=== PATIENT | female | born 1980 ===

== ENCOUNTER 2017-01-20 06:18 | Inpatient (IN) | payer MEDICAID ==
[2017-01-09 10:05] VITALS: BMI 30.7
[2017-01-20] MEDS ORDERED: Phenylephrine 10 mg/ml Inj ONE (06:58)
[2017-01-20] MEDS ORDERED: Vasopressin 20 Units/ml Inj ONE (06:58)
[2017-01-20] MEDS ORDERED: Propofol 10 mg/ml Inj (20 ML) ONE (07:01)
[2017-01-20] MEDS ORDERED: Midazolam 2 MG/2 ML VIAL ONE (07:02)
[2017-01-20] MEDS ORDERED: Rocuronium 10 mg/ml (5 ml) ONE (07:02)
[2017-01-20] MEDS ORDERED: ePHEDrine 50 mg/ml Inj ONE (07:02)
[2017-01-20] MEDS ORDERED: Succinylcholine 200 mg/10 ml Inj IV ONE (07:02)
[2017-01-20] MEDS ORDERED: Bupivacaine 0.5% Inj(30mL) ONE (07:22)
[2017-01-20] MEDS ORDERED: Lactated Ringer's 1,000 ML IV ONE ×2 (07:55→08:00)
[2017-01-20] MEDS ORDERED: Dexamethasone 4 mg/1 ml ONE (08:23)
[2017-01-20] MEDS ORDERED: Neostigmine Methylsulfate 3mg/3ml Syringe IV ONE (08:23)
[2017-01-20] MEDS ORDERED: Oxycodone/Acetaminophen 5/325 mg Tab PO PRN (09:56)
[2017-01-20] MEDS ORDERED: Naloxone 0.4 mg/ml Inj (Adult) IVP PRN (10:17)
[2017-01-20] MEDS ORDERED: DiphenhydrAMINE 50 mg/ml Inj IVP PRN (10:17)
[2017-01-20] MEDS: HYDROmorphone 0.5 mg/0.5 ml ISec IVP PRN ×4 (10:25→11:05)
[2017-01-20] MEDS: cefOXitin Sodium 1 GM in Sodium Chloride 0.9% 100 ML IVPB SCH (17:48)
[2017-01-21] MEDS: cefOXitin Sodium 1 GM in Sodium Chloride 0.9% 100 ML IVPB SCH ×2 (01:51→08:51)
[2017-01-21] MEDS: Lactated Ringer's 1,000 ML IV SCH ×2 (01:51→11:46)
[2017-01-21 05:01] VITALS: RESP 20; O2SAT 99
[2017-01-21 07:34] VITALS: BP 108/65; PULSE 70; TEMP 98.1
[2017-01-21 08:15] LABS: HEMATOCRIT 22.8 % (34.0-47.0); MEAN CORPUSCULAR HEMOGLOBIN 19.9 pg (27.0-31.0); MEAN CORPUSCULAR HGB CONC 30.2 g/dL (33.0-37.0); WHITE BLOOD COUNT 16.4 K/uL (4.8-10.8)
--- NOTE | 2017-01-21 09:11 | CP.PCM.PN ---
<Bubba Lopez - Last Filed: 01/21/17 09:14> Subjective - Date & Time of Evaluation Date of Evaluation: 01/21/17 Time of Evaluation: 08:35 - Subjective Subjective: This is a 36 F who had a robotic hysterectomy yesterday. Pt reports feeling well today, lower abdominal pain is present and exacerbated with movement but tolerable with current analgesics. Pt tolerating PO. No passing of gas per rectum or bowel movement yet. Overall recovering fine. Objective - Vital Signs/Intake and Output Vital Signs (last 24 hours): Temp Pulse Resp BP Pulse Ox 98.1 F 70 20 108/65 99 01/21/17 07:34 01/21/17 07:34 01/21/17 07:34 01/21/17 07:34 01/21/17 07:34 - Medications Medications: Current Medications Diphenhydramine HCl (Benadryl) 25 mg IVP Q6 PRN PRN Reason: Itching / Pruritus Hydromorphone HCl (Dilaudid 0.2 Mg/Ml Synoptic Meteorologist) 0 mg IV PRN PRN; Protocol PRN Reason: Pain, severe (8-10) Last Admin: 01/20/17 11:11 Dose: 6 mg Lactated Ringer's (Lactated Ringer's) 1,000 mls @ 125 mls/hr IV .Q8H AR Last Admin: 01/21/17 01:51 Dose: 125 mls/hr Cefoxitin Sodium 1 gm/ Sodium (Chloride) 100 mls @ 100 mls/hr IVPB Q8 AR Stop: 01/21/17 09:59 Last Admin: 01/21/17 08:51 Dose: 100 mls/hr Ketorolac Tromethamine (Toradol) 30 mg IVP Q6 PRN PRN Reason: Pain, Mild (1-3) Naloxone HCl (Narcan) 0.1 mg IVP Q2M PRN PRN Reason: Shortness of Breath Ondansetron HCl (Zofran Inj) 4 mg IVP ONCE PRN PRN Reason: Nausea/Vomiting Oxycodone/Acetaminophen (Percocet 5/325 Mg Tab) 1 tab PO Q4 PRN PRN Reason: Pain, moderate (4-7) Stop: 01/23/17 09:57 - Labs Labs: 01/21/17 06:00 - Constitutional Appears: Well, No Acute Distress - Head Exam Head Exam: NORMAL INSPECTION - ENT Exam ENT Exam: Mucous Membranes Dry - Neck Exam Neck Exam: Full ROM - Respiratory Exam Respiratory Exam: Clear to Ausculation Bilateral - Cardiovascular Exam Cardiovascular Exam: +S1, +S2 - GI/Abdominal Exam GI & Abdominal Exam: Soft (Incisions clean, dry and intact.), Tenderness, Normal Bowel Sounds. absent: Bruit, Guarding, Rigid Assessment and Plan - Assessment and Plan (Free Text) Assessment: 1. s/p total hysterectomy. Plan: Pt will be discharge home today. Pt encouraged to ambulate and hydrate well. No heavy lifting. Pt instructed to apply warm compresses and clean incisions with warm water. Percocet was prescribed as per pain control. Please follow Dr. Brian in 1 week. <Shane Hampton - Last Filed: 01/25/17 07:33> Objective - Vital Signs/Intake and Output Vital Signs (last 24 hours): Temp Pulse Resp BP Pulse Ox 98.1 F 70 20 108/65 99 01/21/17 07:34 01/21/17 07:34 01/21/17 07:34 01/21/17 07:34 01/21/17 07:34 - Labs Labs: 01/21/17 06:00 Attending/Attestation - Attestation I have personally seen and examined this patient.: Yes I have fully participated in the care of the patient.: Yes I have reviewed all pertinent clinical information, including history, physical exam and plan: Yes
--- NOTE | 2017-02-11 05:50 | OP ---
PREOPERATIVE DIAGNOSES: Symptomatic fibroid uterus, history of blood transfusion, history of anemia. POSTOPERATIVE DIAGNOSES: Symptomatic fibroid uterus, history of blood transfusion, history of anemia. OPERATION PERFORMED: Robotic-assisted hysterectomy. SURGEON: Belen Brian MD ANESTHESIA: General. ANESTHESIA ADMINISTERED BY: Dr. Jama ESTIMATED BLOOD LOSS: 75 mL. IV FLUID INTAKE: Patient received approximately 1600 mL of D5 LR intraoperatively. URINE OUTPUT: Approximately 600 mL of clear urine. OPERATIVE FINDINGS: A 10-week size uterus. Normal tubes and ovaries were identified. Cystoscopy revealed a normal dome of the bladder and there was bilateral efflux of urine from the ostia. AUTOMOTIVE HEAVY MECHANIC: Yoselin Loaiza . She was helpful in manipulating the specimen, helping with obtaining hemostasis and a closure of the patient. The procedure has not been possible without her assistance. DESCRIPTION OF PROCEDURE: After informed consent was obtained, the patient was taken to the operating room, where she was given general anesthesia. She was then prepped and draped in a normal sterile fashion in a modified lithotomy position. Attention was then turned to the vagina, where a weighted speculum was inserted into the vagina, cervix was visualized, grasped with a single-toothed tenaculum. Cervix was then gently dilated and a VCare uterine manipulator was inserted in the uterine cavity as a means to manipulate the uterus. Attention was then turned to the urethra. Knott catheter was inserted to monitor the patient's urinary output. Attention was then turned to the abdomen, where approximately at the level of the umbilical fold, Marcaine was infused and an 8 mm incision was made with the scalpel. The abdomen was then tented upward and the Veress needle was inserted into the abdominal cavity. The abdomen was insufflated to 15 mL/mHg. The Veress needle was removed and 8 mm trocar was introduced into the abdominal cavity and placement was confirmed with the laparoscope. Attention was then turned to approximately 20 cm right and lateral of the umbilicus. Marcaine was infused and 8 mm incision was made and an 8 mm robotic port was introduced under direct visualization. Attention was then turned to approximately 10 cm right and lateral of the umbilicus, which in similar fashion, Marcaine was infused and 8 mm incision was made, and an 8 mm robotic port was introduced under direct visualization. Attention was then turned to the left side, approximately 20 cm left and lateral of the umbilicus, Marcaine was infused and an 8 mm incision was made and a 8 mm robotic port was introduced into the abdominal cavity. Approximately 10 cm left and lateral of 5 mm incision was made and a 5 mm port was introduced to the abdominal cavity for the assisted port. The patient was then placed in a steep Trendelenburg. The robot was brought along the patient site and docked without complication. The instruments used for the surgery were PK dissector, scissor, ProGrasp, and Sebas Suture Cut. I then proceeded to break scrub and approached the surgical console. Attention was then turned to the right round ligament. It was serially coagulated and transected with the scissors. The vesicouterine peritoneum was then undermined with a PK dissector and the tissue was cut with a scissor down to the level of VCare cup anteriorly. Attention was then turned to the utero-ovarian ligament, it was serially coagulated and transected with a scissor. The broad ligament was then skeletonized downward down to the level of VCare cup posteriorly. The uterine arteries were then skeletonized and then serially coagulated down to the level of Vcare cup. The left ureter was clearly visualized inferiorly. Attention was then turned to the right side of the abdomen, the round ligament was serially coagulated, then transected with the scissors. The vesicouterine peritoneum was undermined with a PK dissector down to the level of Vcare cup and cut with scissors. The VCare cup was then identified anteriorly. The utero-ovarian ligament was then serially coagulated and transected with the scissors. The posterior leaf of the broad ligament was then cut with the scissors down to the level of VCare cup posteriorly. The uterine artery was then skeletonized and serially coagulated. The VCare cup was then identified anteriorly, posteriorly, and laterally. The cervix and uterus were then amputated with a hot neto and the uterus and tubes were delivered vaginally. The vaginal cuff was then closed with 2-0, 1-0 barbed suture. The abdomen was then copiously irrigated. The irrigant was then removed with a suction device. Hemostasis was noted. All instruments were then removed from the abdomen and we undocked the patient from the robot. Attention was then turned to the bladder, where cystoscopy was performed. Due to variations of normal anatomy, the right ureter was not clearly visualized. Cystoscopy was performed. The dome of the bladder was noted to be intact and there was bilateral efflux of urine. All instruments were then removed from the bladder. The skin incisions were closed with Dermabond. All sponge, lap, needle, and instrument counts were correct x2, and the patient was taken to the recovery room in awake and stable condition. Belen Brian MD MTDD
== END 2017-01-21 16:11 | disposition home or self-care (01) | DRG 359 ==
LOC: H.OPSURG 06:18 → H.MEDSURG1 09:56
PROVIDERS: ADMIT Obstetrics & Gynecology Gynecology; ATTEND Obstetrics & Gynecology Gynecology
PROC: 8E0W4CZ Robotic Assisted Procedure of Trunk Region, Percutaneous Endoscopic Approach (ICD-10-PCS; 2017-01-20)
PROC: 0UT94ZZ Resection of Uterus, Percutaneous Endoscopic Approach (ICD-10-PCS; principal; 2017-01-20 07:45)
PROC: 0UTC4ZZ Resection of Cervix, Percutaneous Endoscopic Approach (ICD-10-PCS; 2017-01-20 07:45)
DX: D25.9 Leiomyoma of uterus, unspecified (principal); Z91.012 Allergy to eggs

== ENCOUNTER 2017-01-23 01:05 | Emergency (ER) | payer MEDICAID ==
[2017-01-23 01:06] VITALS: BMI 30.7
[2017-01-23 01:20] VITALS: BP 131/90; PULSE 87; RESP 18; TEMP 99.4; O2SAT 99
[2017-01-23] MEDS ORDERED: Sodium Chloride 0.9% 1,000 ML IV STA (01:21)
[2017-01-23] MEDS ORDERED: Magnesium Citrate Oral SOL (300 ml) PO ONE (01:21)
--- NOTE | 2017-01-23 01:25 | ED PDOC ---
HPI: Abdomen Time Seen by Provider: 01/23/17 01:10 Chief Complaint (Nursing): GI Problem Chief Complaint (Provider): Constipation History Per: Patient Additional Complaint(s): Pt is a 36 yo female, recently underwent Hysterectomy this past Monday, presents with abdominal cramping and constipation since (4 days ago). Pt has been taking Percocet for her pain and was also given RX for Senakot, which she has been taking as well. Past Medical History Vital Signs: Last Vital Signs Temp 99.4 F 01/23/17 01:15 Pulse 87 01/23/17 01:15 Resp 18 01/23/17 01:15 BP 131/90 01/23/17 01:15 Pulse Ox 99 01/23/17 01:26 - Medical History PMH: Anemia Denies: Chronic Kidney Disease - Surgical History Surgical History: - Family History Family History: States: Unknown Family Hx - Home Medications Home Medications: Ambulatory Orders Medication Instructions Recorded Ferrous Sulfate [Feosol] 325 mg PO BID #0 tab 10/01/16 Multivitamin [Multiple Vitamins] 1 tab PO DAILY 01/20/17 Sennosides/Docusate Sodium 1 each PO HS #30 tablet 01/21/17 [Senokot-S Tablet] oxyCODONE/Acetaminophen [Percocet 1 tab PO Q4 PRN #24 tab 01/21/17 5/325 mg Tab] - Allergies Allergies/Adverse Reactions: Allergies Allergy/AdvReac Type Severity Reaction Status Date / Time EGG Allergy Intermediate PAIN Verified 09/30/16 18:25 Physical Exam - Reviewed Nursing Documentation Reviewed: Yes Vital Signs Reviewed: Yes - Physical Exam Appears: Positive for: Well, Non-toxic, No Acute Distress Head Exam: Positive for: ATRAUMATIC, NORMAL INSPECTION, NORMOCEPHALIC Skin: Positive for: Normal Color, Warm, DRY Eye Exam: Positive for: EOMI, Normal appearance, PERRL ENT: Positive for: Normal ENT Inspection Neck: Positive for: Normal, Painless ROM Cardiovascular/Chest: Positive for: Regular Rate, Rhythm Respiratory: Positive for: CNT, Normal Breath Sounds Gastrointestinal/Abdominal: Positive for: Normal Exam, Bowel Sounds, Soft. Negative for: Tenderness, Distended Back: Positive for: Normal Inspection Extremity: Positive for: Normal ROM Neurologic/Psych: Positive for: Alert, Oriented - Laboratory Results Result Diagrams: 01/23/17 01:32 01/23/17 01:32 - ECG O2 Sat by Pulse Oximetry: 99 Medical Decision Making Medical Decision Making: CBC, COMP and UA resulted WNl Abdomen XR: (+) non obstructive gas pattern, as read by AP-C Pt medicated with Mag citrate and fleet Enema. Pt had 3 large BMs while in ED and reports feeling greatly improved abdomen soft, non tender and non distended Disposition - Clinical Impression Clinical Impression: Constipation - Patient ED Disposition Is Patient to be Admitted: No - Disposition Referrals: Betty Hebert MD [Primary Care Provider] - Disposition: Routine/Home Disposition Time: 02:54 Condition: STABLE Instructions: Constipation (ED) - POA Present On Arrival: None
[2017-01-23 01:44] LABS: BASO # 0.1 K/uL (0.0-0.2); BASO % 1.4 % (0.0-2.0); EOS # 0.3 K/uL (0.0-0.7); EOS % 3.2 % (0.0-4.0); HEMOGLOBIN 7.6 g/dL (12.0-16.0); LYMPH # 1.8 K/uL (1.0-4.3); MEAN CELL VOLUME 65.2 fl (81.0-99.0); MEAN CORPUSCULAR HEMOGLOBIN 19.6 pg (27.0-31.0); MEAN PLATELET VOLUME 7.7 fl (7.2-11.7); MONO # 0.6 K/uL (0.0-0.8); MONO % 7.5 % (0.0-10.0); NEUT # 5.5 K/uL (1.8-7.0); NEUT % 65.9 % (50.0-75.0); RBC 3.86 Mil/uL (3.80-5.20); RED CELL DISTRIBUTION WIDTH 18.8 % (11.5-14.5); WHITE BLOOD COUNT 8.4 K/uL (4.8-10.8)
[2017-01-23 01:57] LABS: ALB/GLOB RATIO 1.2 (1.0-2.1); ALBUMIN 4.3 g/dL (3.5-5.0); ALT/SGPT 35 U/L (9-52); AST/SGOT 38 U/L (14-36); BLOOD UREA NITROGEN 7 mg/dl (7-17); CALCIUM 9.4 mg/dL (8.4-10.2); GFR AFRICAN-AMERICAN > 60; GFR NON-AFRICAN AMERICAN > 60
[2017-01-23 02:00] LABS: SQUAMOUS EPITHIAL 1 /hpf (0-5); URINE BILIRUBIN NEGATIVE (NEGATIVE); URINE BLOOD NEGATIVE (NEGATIVE); URINE CLARITY CLEAR (Clear); URINE COLOR STRAW (YELLOW); URINE GLUCOSE (UA) NEG (Normal); URINE LEUKOCYTE ESTERASE NEG Leu/uL (Negative); URINE NITRATE NEGATIVE (NEGATIVE); URINE PROTEIN NEGATIVE (NEGATIVE); URINE UROBILINOGEN 0.2-1.0 mg/dL (0.2-1.0)
[2017-01-23] MEDS ORDERED: Simethicone 80 mg Chewtab PO PRN (03:01)
--- NOTE | 2017-01-23 11:22 | RAD ---
HISTORY: constipation COMPARISON: No prior. FINDINGS: BOWEL: Moderate amount stool seen throughout the colon consistent with constipation. No evidence of acute mechanical bowel obstruction. BONES: Normal. OTHER FINDINGS: No definitive abnormal calcifications IMPRESSION: Findings consistent with constipation. No evidence acute mechanical bowel obstruction
== END 2017-01-23 04:07 | disposition home or self-care (01) ==
LOC: H.ER 01:05
DX: K59.00 Constipation, unspecified (principal)

== ENCOUNTER 2017-03-16 12:37 | Emergency (ER) | payer MEDICAID ==
[2017-03-16 12:37] VITALS: BMI 30.7
[2017-03-16 12:46] VITALS: BP 109/69; PULSE 89; RESP 18; TEMP 97; O2SAT 98
--- NOTE | 2017-03-16 13:06 | ED PDOC ---
Lower Extremity Pain/Injury Time Seen by Provider: 03/16/17 12:57 Chief Complaint (Nursing): Lower Extremity Problem/Injury Chief Complaint (Provider): ankle pain History Per: Patient Current Symptoms Are (Timing): Still Present Additional Complaint(s): Rosario Singh is a 36 year old female who presents to the emergency department with a complaint of right ankle pain associated with swelling status post twisting ankle when she fell yesterday, 03/15/17. She denied taking pain medication for relief and has no associated numbness or tingling to affected area. Patient stated she is able to ambulate but has pain with weigh bearing. Patient denies head injury or loss of consciousness as a result of fall yesterday, denies dizziness or syncope prior to fall. PMD: Betty Hebert MD Past Medical History Reviewed: Historical Data, Nursing Documentation, Vital Signs Vital Signs: Last Vital Signs Temp 97 F L 03/16/17 12:43 Pulse 89 03/16/17 12:43 Resp 18 03/16/17 12:43 BP 109/69 03/16/17 12:43 Pulse Ox 98 03/16/17 12:43 - Medical History PMH: Anemia - Surgical History Surgical History: Other surgeries: hysterectomy - Family History Family History: States: No Known Family Hx - Living Arrangements Living Arrangements: With Family - Social History Current smoker - smoking cessation education provided: No Alcohol: None Drugs: Denies - Home Medications Home Medications: Ambulatory Orders Medication Instructions Recorded Ferrous Sulfate [Feosol] 325 mg PO BID #0 tab 10/01/16 Multivitamin [Multiple Vitamins] 1 tab PO DAILY 01/20/17 Sennosides/Docusate Sodium 1 each PO HS #30 tablet 01/21/17 [Senokot-S Tablet] oxyCODONE/Acetaminophen [Percocet 1 tab PO Q4 PRN #24 tab 01/21/17 5/325 mg Tab] Simethicone [Mylicon Chew Tab] 80 mg PO Q4 #20 ctb 01/23/17 - Allergies Allergies/Adverse Reactions: Allergies Allergy/AdvReac Type Severity Reaction Status Date / Time EGG Allergy Intermediate PAIN Verified 09/30/16 18:25 Wells Criteria for PE - Wells Criteria for Pulmonary Embolism Clinical Signs and Symptoms of DVT: No P.E is #1 Diagnosis, or Equally Likely: No Heart Rate >100: No Immobilization at least 3 days;Surgery previous 4 weeks: No Previous, objectively diagnosed PE or DVT: No Hemoptysis: No Malignancy w/treatment within 6 months, or palliative: No Total Score: 0 Review of Systems ROS Statement: Except As Marked, All Systems Reviewed And Found Negative Musculoskeletal: Positive for: Foot Pain (right ankle injury) Physical Exam - Reviewed Nursing Documentation Reviewed: Yes Vital Signs Reviewed: Yes - Physical Exam Appears: Positive for: Well, Non-toxic, No Acute Distress Head Exam: Positive for: ATRAUMATIC, NORMAL INSPECTION, NORMOCEPHALIC Skin: Positive for: Normal Color Respiratory: Positive for: Normal Breath Sounds. Negative for: Respiratory Distress Extremity: Positive for: Tenderness (moderate to right lateral malleolus), Swelling (moderate to right lateral malleolus), Other (decreased ROM of right ankle). Negative for: Normal ROM Neurologic/Psych: Positive for: Alert, Oriented - ECG O2 Sat by Pulse Oximetry: 98 (RA) Pulse Ox Interpretation: Normal - Other Rad Right ankle x-ray X-Ray: Interpreted by Me, Viewed By Me X-Ray Interpretation: no fx, no dis Medical Decision Making Medical Decision Making: Initial Impression: 36 year old with right ankle pain Initial Plan: * Motrin 600mg PO * Xray foot (right) Time: 120 --Xray: no fractures or deformity noted. --Upon provider reevaluation, patient is medically stable and requires no further treatment in the ED at this time. She was given crutches. LEIGHTON wrap and air cast applied to right foot. Patient will be discharged home. Counseling was provided and all questions were answered regarding diagnosis and need for follow up with podiatry. There is agreement to discharge plan. Return if symptoms persist or worsen. Clinical Impression: Right ankle sprain Scribe Attestation: Documented by Tyra Sandoval, acting as a scribe for Sarah Squires PA-C. Provider Scribe Attestation: All medical record entries made by the Scribe were at my direction and personally dictated by me. I have reviewed the chart and agree that the record accurately reflects my personal performance of the history, physical exam, medical decision making, and the department course for this patient. I have also personally directed, reviewed, and agree with the discharge instructions and disposition. Procedures - Splinting Location: right ankle Pre-Made Type: aircast (leighton wrap and aircast) Pre-Proc Neuro Vasc Exam: normal Post-Proc Neuro Vasc Exam: normal Disposition - Clinical Impression Clinical Impression: Ankle sprain - Patient ED Disposition Is Patient to be Admitted: No Counseled Patient/Family Regarding: Studies Performed, Diagnosis, Need For Followup - Disposition Referrals: Podiatry Clinic [Outside] Disposition: Routine/Home Disposition Time: 13:36 Condition: STABLE Additional Instructions: Ice, rest and elevate affected area. Take [id number] Tylenol or Motrin for pain as needed. Follow-up with podiatry clinic in 2-3 days. Instructions: Ankle Stirrup Splint (ED), Ankle Sprain (ED), Crutch Instructions (ED) Forms: [employer] (Tuvaluan) Print Language: WELSH
--- NOTE | 2017-03-16 13:26 | RAD ---
PROCEDURE: Right ankle dated 03/16/2017. HISTORY: trauma COMPARISON: None FINDINGS: BONES: No evidence of acute displaced fracture nor dislocation however note made of 1 or 2 tiny corticated bony densities within the soft tissues subjacent to the inferior tip of the medial malleolus lateral malleolus overlying the inferolateral margin of the ankle mortise. Findings may represent some old posttraumatic mineralization or sequela of old avulsion injury. Clinical correlation with history recommended. Mild moderate lateral soft tissue swelling JOINTS: Normal. No osteoarthritis. Ankle mortise maintained. Talar dome intact SOFT TISSUES: As above. OTHER FINDINGS: None. IMPRESSION: No evidence of acute displaced fracture nor dislocation however note made of 1 or 2 tiny corticated bony densities within the soft tissues subjacent to the inferior tip of the medial malleolus lateral malleolus overlying the inferolateral margin of the ankle mortise. Findings may represent some old posttraumatic mineralization or sequela of old avulsion injury. Clinical correlation with history recommended. Mild moderate lateral soft tissue swelling
== END 2017-03-16 13:41 | disposition home or self-care (01) ==
LOC: H.ER 12:37
DX: S93.401A Sprain of unspecified ligament of right ankle, initial encounter (principal); W19.XXXA Unspecified fall, initial encounter; Y92.89 Other specified places as the place of occurrence of the external cause

== ENCOUNTER 2017-12-20 23:53 | Emergency (ER) | payer MEDICAID ==
[2017-12-20 23:54] VITALS: BMI 30.7
[2017-12-20 23:58] VITALS: BP 133/87; RESP 16; TEMP 98.8; O2SAT 98
[2017-12-21 00:40] LABS: BASO % 0.2 % (0.0-2.0); EOS # 0.2 K/uL (0.0-0.7); EOS % 3.7 % (0.0-4.0); HEMOGLOBIN 11.5 g/dL (12.0-16.0); LYMPH % 35.7 % (20.0-40.0); MEAN CELL VOLUME 81.8 fl (81.0-99.0); MEAN CORPUSCULAR HEMOGLOBIN 26.2 pg (27.0-31.0); MEAN PLATELET VOLUME 8.9 fl (7.2-11.7); MONO # 0.6 K/uL (0.0-0.8); MONO % 10.5 % (0.0-10.0); NEUT # 2.8 K/uL (1.8-7.0); NEUT % 49.9 % (50.0-75.0); NRBC % 0.1 % (0.0-0.0); RBC 4.39 Mil/uL (3.80-5.20); RED CELL DISTRIBUTION WIDTH 14.3 % (11.5-14.5); WHITE BLOOD COUNT 5.6 K/uL (4.8-10.8)
[2017-12-21 00:51] LABS: BLOOD UREA NITROGEN 14 mg/dl (7-17); CALCIUM 9.6 mg/dL (8.4-10.2); GFR AFRICAN-AMERICAN > 60; GFR NON-AFRICAN AMERICAN > 60
--- NOTE | 2017-12-21 00:57 | ED PDOC ---
HPI: Chest Pain Time Seen by Provider: 12/21/17 00:03 Chief Complaint (Nursing): Chest Pain Chief Complaint (Provider): Chest Pain and Palpitations History Per: Patient History/Exam Limitations: no limitations Onset/Duration Of Symptoms: Hrs (x1) Current Symptoms Are (Timing): Better Quality: Tightness Associated Symptoms: denies: Nausea, Diaphoresis Additional Complaint(s): 37 year old female with no significant past medical history presents to the ED with chest pain and palpitations that started an hour ago. She reports she was sleeping when she suddenly woke up with chest tightness and a racing heart that lasted for 20 minutes and subsequently resolved. She claims she has been unduly stressed and anxious. Patient states she feels well at present. Currently, patient feels a nervous sensation. She denies nausea, vomiting, diaphoresis, or any other medical complaints. PMD: Dr. Betty Hebert Past Medical History Reviewed: Historical Data, Nursing Documentation, Vital Signs Vital Signs: Last Vital Signs Temp 98.8 F 12/20/17 23:56 Pulse 78 12/21/17 02:38 Resp 16 12/20/17 23:56 BP 133/87 12/20/17 23:56 Pulse Ox 98 12/21/17 01:03 - Medical History PMH: Anemia Denies: Chronic Kidney Disease - Surgical History Surgical History: - Family History Family History: States: Unknown Family Hx - Social History Current smoker - smoking cessation education provided: No Ex-Smoker (has not smoked in the last 12 months): No Alcohol: None Drugs: Cannabis - Home Medications Home Medications: Ambulatory Orders Medication Instructions Recorded Ferrous Sulfate [Feosol] 325 mg PO BID #0 tab 10/01/16 Multivitamin [Multiple Vitamins] 1 tab PO DAILY 01/20/17 Sennosides/Docusate Sodium 1 each PO HS #30 tablet 01/21/17 [Senokot-S Tablet] oxyCODONE/Acetaminophen [Percocet 1 tab PO Q4 PRN #24 tab 01/21/17 5/325 mg Tab] Simethicone [Mylicon Chew Tab] 80 mg PO Q4 #20 ctb 01/23/17 - Allergies Allergies/Adverse Reactions: Allergies Allergy/AdvReac Type Severity Reaction Status Date / Time EGG Allergy Intermediate PAIN Verified 12/20/17 23:55 Review of Systems ROS Statement: Except As Marked, All Systems Reviewed And Found Negative Constitutional: Negative for: Sweats Cardiovascular: Positive for: Chest Pain, Palpitations Gastrointestinal: Negative for: Nausea, Vomiting Physical Exam - Reviewed Nursing Documentation Reviewed: Yes Vital Signs Reviewed: Yes - Physical Exam Appears: Positive for: Non-toxic, No Acute Distress Head Exam: Positive for: ATRAUMATIC, NORMOCEPHALIC Skin: Positive for: Normal Color, Warm, Dry Eye Exam: Positive for: EOMI, Normal appearance, PERRL Neck: Positive for: Normal, Painless ROM Cardiovascular/Chest: Positive for: Regular Rate, Rhythm. Negative for: Murmur Respiratory: Positive for: Normal Breath Sounds. Negative for: Respiratory Distress Gastrointestinal/Abdominal: Positive for: Normal Exam, Soft. Negative for: Tenderness Extremity: Positive for: Normal ROM (upper and lower extremities) Neurologic/Psych: Positive for: Alert, Oriented (x3) - Laboratory Results Result Diagrams: 12/21/17 00:20 12/21/17 00:20 - ECG O2 Sat by Pulse Oximetry: 98 (RA) Pulse Ox Interpretation: Normal Medical Decision Making Medical Decision Making: Time: 00:04 Initial Impression: 37 y/o female with chest pain and palpitations Initial Plan: --EKG --BMP --Thyroid stimulation --Troponin --U preg --Urine dip --CBC with differentials --CXR --Heplock insertion Labs reviewed show no clinically abnormalities; pt stable for discharge home Dx Anxiety/Atypical Chest Pain Scribe Attestation: Documented by Charmaine Quinteros, acting as a scribe for Raghu Herrera MD Provider Scribe Attestation: All medical record entries made by the Scribe were at my direction and personally dictated by me. I have reviewed the chart and agree that the record accurately reflects my personal performance of the history, physical exam, medical decision making, and the department course for this patient. I have also personally directed, reviewed, and agree with the discharge instructions and disposition. Disposition - Clinical Impression Clinical Impression: Atypical chest pain - Disposition Referrals: Betty Hebert MD [Primary Care Provider] - Disposition Time: 02:00 Condition: STABLE Instructions: Chest Pain That Is Not Caused by the Heart (DC) Forms: [facility] (Serbian) Print Language: CROATIAN
[2017-12-21 02:39] VITALS: PULSE 78
--- NOTE | 2017-12-21 07:48 | RAD ---
HISTORY: chest pain COMPARISON: Frontal chest radiograph 07/26/2010. FINDINGS: LUNGS: No active pulmonary disease. PLEURA: No significant pleural effusion identified, no pneumothorax apparent. CARDIOVASCULAR: Normal. OSSEOUS STRUCTURES: No significant abnormalities. VISUALIZED UPPER ABDOMEN: Normal. OTHER FINDINGS: None. IMPRESSION: No interval acute cardiopulmonary disease appreciated.
--- NOTE | 2017-12-21 17:08 | CARD ---
APPROVED REPORT EKG Measurement Heart [id number] <Conclusion> Normal sinus rhythm Normal ECG
== END 2017-12-21 02:21 | disposition home or self-care (01) ==
LOC: H.ER 23:53
DX: R07.89 Other chest pain (principal); R00.2 Palpitations